=== PATIENT | female | born 1990 | race Two or more races ===

== ENCOUNTER 2019-01-14 18:06 | Emergency (ER) | payer MEDICAID ==
[~2019-01-14] VITALS: Ht 175.3 cm; Wt 48.4 kg
[2019-01-14 18:31] VITALS: BP 129/77
--- NOTE | 2019-01-14 19:55 | NUR ---
NO RESPONSE FROM [facility] AFTER 3 ATTEMPTS TO ROOM. CALL TO NUMBER ON FILE RESULTED IN NUMBER RINGING THEN BEING DISCONNECTED "HUNG UP ON" PRIOR TO ANY CONVERSATION. DR. CASTLE INFORMED.
== END 2019-01-14 20:06 | disposition left against medical advice (07) ==
LOC: ER 18:06
DX: M54.2 Cervicalgia (principal); Z53.21 Procedure and treatment not carried out due to patient leaving prior to being seen by health care provider

== ENCOUNTER 2019-09-26 22:27 | Inpatient (IN) | payer MEDICAID ==
[~2019-09-26] VITALS: Ht 175.3 cm; Wt 63.0 kg
[2019-09-26] MEDS ORDERED: acetaminophen 325mg tablet PO ONE (22:35)
[2019-09-26 23:05] LABS: BASOPHILS % (AUTO) 0.2 % (0-1); EOSINOPHILS # (AUTO) 0.1 X10'3 (0-0.9); EOSINOPHILS % (AUTO) 0.5 % (0-6); HEMATOCRIT 37.9 % (35.0-45.0); HEMOGLOBIN 12.9 g/dl (12.0-16.0); LYMPHOCYTES # (AUTO) 1.4 X10'3 (1.1-4.8); LYMPHOCYTES % (AUTO) 5.7 % (21-51); MEAN CORPUSCULAR HEMOGLOBIN 34.2 PG (27.0-31.0); MEAN CORPUSCULAR VOLUME 100.6 FL (78-98); MEAN PLATELET VOLUME 7.6 FL (7.4-10.4); MONOCYTES # (AUTO) 0.6 X10'3 (0-0.9); MONOCYTES % (AUTO) 2.6 % (2-12); NEUTROPHILS # (AUTO) 22.7 X10'3 (1.8-7.7); PLATELET COUNT 268 X10'3 (140-440); RED BLOOD COUNT 3.76 X10'6 (4.20-5.60); RED CELL DISTRIBUTION WIDTH 12.4 % (11.5-14.5); WHITE BLOOD COUNT 24.9 X10'3 (4.5-11.0)
[2019-09-26 23:18] LABS: ALANINE AMINOTRANSFERASE 19 U/L (12-78); ALBUMIN 3.9 G/DL (3.4-5.0); ALKALINE PHOSPHATASE 87 IU/L (46-116); ANION GAP 11 (8-16); ASPARTATE AMINO TRANSFERASE 20 U/L (10-37); BILIRUBIN,TOTAL 0.3 MG/DL (0.1-1.0); BLOOD UREA NITROGEN 16 MG/DL (7-18); BUN/CREATININE RATIO 20.5 (6.6-38.0); CHLORIDE 101 MMOL/L (99-107); CREATININE 0.78 MG/DL (0.40-0.90); GLUCOSE 138 MG/DL (70-104); LIPASE 67 U/L (73-393); POTASSIUM 3.5 MMOL/L (3.5-5.1); SODIUM 136 MMOL/L (135-145); TOTAL CARBON DIOXIDE 24.2 MMOL/L (24-32); eGFR 88 ML/MIN
[2019-09-26] MEDS ORDERED: ondansetron/PF 4mg/2ml inj IV ONE (23:40)
[2019-09-26] MEDS ORDERED: pantoprazole 40 MG vial IV ONE (23:40)
[2019-09-26] MEDS ORDERED: morphine 4 MG/ML inj SYRINge IV ONE (23:40)
[2019-09-26] MEDS ORDERED: normal saline 1000ML IV soln IVB ONE ×2 (23:40)
[2019-09-26] MEDS ORDERED: LORazepam 2 mg/ml vial IV ONE (23:50)
[2019-09-27 00:20] LABS: URINE HCG NEGATIVE (NEG)
[2019-09-27 00:23] LABS: CLARITY,URINE SLIGHTLY CLOUDY (Clear); COLOR,URINE YELLOW (Yellow); GLUCOSE, URINE NEGATIVE (Neg); KETONES,URINE NEGATIVE (Neg); LEUKOCYTE ESTERASE ,URINE NEGATIVE (Neg); NITRITES, URINE NEGATIVE (Neg); OCCULT BLOOD,URINE NEGATIVE (Neg); PH,URINE 7.5 (4.8-8.0); PROTEIN,URINE NEGATIVE (Neg); UA COLLECTION TYPE CLN CATCH MIDSTREAM
[2019-09-27 00:30] LABS: SQUAMOUS EPITHELIAL CELL,UR MODERATE /LPF (FEW)
[2019-09-27 00:31] LABS: BACTERIA,URINE NONE SEEN /HPF (Neg); MUCUS STRANDS FEW /LPF (Neg); RBC,URINE 0-2 /HPF (0-2)
[2019-09-27] MEDS ORDERED: iohexol 300mg/ml 100ml inj. ONE (00:39)
--- NOTE | 2019-09-27 00:44 | NUR ---
TO CT VIA [facility] ACCOMPANIED BY [employer] TE[employer]NY GREEN
[2019-09-27 00:45] LABS: URINE AMPHETAMINE SCREEN POSITIVE (Neg); URINE BARBITUATE SCREEN NEGATIVE (Neg); URINE BENZODIAZEPINES SCREEN NEGATIVE (Neg); URINE CANNABINOID SCREEN POSITIVE (Neg); URINE COCAINE SCREEN NEGATIVE (Neg); URINE METHADONE SCREEN NEGATIVE (Neg); URINE OPIATE SCREEN NEGATIVE (Neg); URINE PHENCYCLIDINE SCREEN NEGATIVE (Neg)
[2019-09-27] MEDS ORDERED: doxycycline inj 100 MG in normal saline 100ml IV soln 100 ML IV SCH ×2 (00:55→08:00)
[2019-09-27] MEDS ORDERED: cefoxitin sod inj 2,000 MG in normal saline 100ml IV soln 100 ML IV SCH ×2 (00:55→08:00)
[2019-09-27] MEDS ORDERED: DOXYCYCLINE 100MG CAPSULE PO ONE (01:00)
[2019-09-27] MEDS ORDERED: cefoxitin sod inj 2,000 MG in normal saline 100ml IV soln 100 ML IV ONE (01:05)
[2019-09-27 01:09] LABS: TOTAL CELLS COUNTED 100
[2019-09-27 01:10] LABS: PLATELET ESTIMATE NORMAL; SMUDGE CELLS 1+
[2019-09-27 01:11] LABS: STOMATOCYTES FEW
[2019-09-27] MEDS ORDERED: NO HOME MEDS (02:23)
[2019-09-27] MEDS ORDERED: morphine 2 MG/ML inj. syringe IV PRN ×2 (02:45→20:55)
[2019-09-27] MEDS ORDERED: magnesium hydroxide 30ml (MOM) UD suspension PO PRN (02:45)
[2019-09-27] MEDS ORDERED: ondansetron/PF 4mg/2ml inj IV PRN (02:45)
[2019-09-27] MEDS ORDERED: mag hydrox/Alum hydrox/simeth 30ml oral suspension PO PRN (02:45)
[2019-09-27] MEDS: morphine 2 MG/ML inj. syringe IV PRN ×6 (03:13→20:58)
--- NOTE | 2019-09-27 03:30 | NUR ---
oriented pt to room. call light in reach. noted pt clutching belly,bent over and groaning while moving from chair to bed.
[2019-09-27] MEDS: normal saline 1000ml 1,000 ML IV SCH ×3 (03:32→21:23)
[2019-09-27 03:40] VITALS: BP 114/67
[2019-09-27 06:00] VITALS: BP 121/71
--- NOTE | 2019-09-27 06:31 | NUR ---
reported to days. noted pt still sleeping. no sxs distress. VSS.
--- NOTE | 2019-09-27 06:54 | NUR ---
Patient in room ORTHO 4012. I have received report from Lilliam ROGERS and had the opportunity to ask questions and assume patient care.
[2019-09-27] MEDS: ceFOXitin 2 GM ADDvantage bag 100 ML IV SCH ×3 (07:28→19:51)
[2019-09-27] MEDS: heparin, porcine 5000 units/ml vial SQ SCH ×2 (07:29→19:51)
[2019-09-27] MEDS: DOXYCYCLINE 100MG CAPSULE PO SCH ×2 (07:29→19:49)
[2019-09-27 10:00] VITALS: BP 105/66
--- NOTE | 2019-09-27 10:12 | NUR ---
WHILE DARTING PATIENT SHE INFORMED ME THAT SHE IS HOMELESS AND USES DRUGS, ASKED HER IF SHE WOULD LIKE A PANAMA HAT BLOCKER TO TALK TO HER ABOUT HER SITUATION, SHE DENIED THIS SERVICE AT THIS TIME.
--- NOTE | 2019-09-27 10:44 | NUR ---
Student documentation: I have reviewed all interventions, assessments performed and [facility] Student Medication Administration: For this medication-pass time frame, all medication were reviewed, dispensed, administered and documented per hospital policy [facility].
[2019-09-27 18:00] VITALS: BP 111/56
--- NOTE | 2019-09-27 18:14 | NUR ---
Problems reprioritized. Patient report given, questions answered & plan of care reviewed with Yasemin ROGERS.
--- NOTE | 2019-09-27 18:15 | NUR ---
Patient in room ORTHO 4012. I have received report from SUE Márquez and had the opportunity to ask questions and assume patient care.
[2019-09-27] MEDS: acetaminophen 325mg tablet PO PRN (21:50)
[2019-09-27 22:00] VITALS: BP 119/69
[2019-09-28] MEDS: morphine 2 MG/ML inj. syringe IV PRN ×5 (02:14→19:49)
[2019-09-28 06:00] VITALS: BP 144/87
[2019-09-28 06:15] LABS: BASOPHILS % (AUTO) 0.2 % (0-1); EOSINOPHILS % (AUTO) 0.3 % (0-6); HEMATOCRIT 33.6 % (35.0-45.0); HEMOGLOBIN 11.6 g/dl (12.0-16.0); LYMPHOCYTES # (AUTO) 0.8 X10'3 (1.1-4.8); LYMPHOCYTES % (AUTO) 5.4 % (21-51); MEAN CORPUSCULAR HEMOGLOBIN 34.6 PG (27.0-31.0); MEAN CORPUSCULAR HGB CONC 34.4 g/dL (33.0-36.5); MEAN CORPUSCULAR VOLUME 100.6 FL (78-98); MEAN PLATELET VOLUME 8.3 FL (7.4-10.4); MONOCYTES # (AUTO) 0.5 X10'3 (0-0.9); MONOCYTES % (AUTO) 3.3 % (2-12); NEUTROPHILS # (AUTO) 14.2 X10'3 (1.8-7.7); NEUTROPHILS % (AUTO) 90.8 % (42-75); PLATELET COUNT 210 X10'3 (140-440); RED BLOOD COUNT 3.34 X10'6 (4.20-5.60); WHITE BLOOD COUNT 15.7 X10'3 (4.5-11.0)
[2019-09-28 06:30] LABS: ALANINE AMINOTRANSFERASE 15 U/L (12-78); ALBUMIN 2.9 G/DL (3.4-5.0); ALBUMIN/GLOBULIN RATIO 0.7 (1.1-1.5); ALKALINE PHOSPHATASE 73 IU/L (46-116); ANION GAP 8 (8-16); ASPARTATE AMINO TRANSFERASE 16 U/L (10-37); BILIRUBIN,TOTAL 0.4 MG/DL (0.1-1.0); BLOOD UREA NITROGEN 6 MG/DL (7-18); BUN/CREATININE RATIO 7.7 (6.6-38.0); CALCIUM 8.6 MG/DL (8.5-10.1); CHLORIDE 103 MMOL/L (99-107); CREATININE 0.78 MG/DL (0.40-0.90); GLUCOSE 83 MG/DL (70-104); POTASSIUM 3.5 MMOL/L (3.5-5.1); SODIUM 136 MMOL/L (135-145); TOTAL CARBON DIOXIDE 24.7 MMOL/L (24-32); TOTAL PROTEIN 6.8 G/DL (6.4-8.2); eGFR 88 ML/MIN
--- NOTE | 2019-09-28 06:40 | NUR ---
Patient in room ORTHO 4012. I have received report from Yasemin ROGERS and had the opportunity to ask questions and assume patient care.
--- NOTE | 2019-09-28 06:42 | NUR ---
Problems reprioritized. Patient report given, questions answered & plan of care reviewed with SUE Márquez.
[2019-09-28] MEDS: normal saline 1000ml 1,000 ML IV SCH ×2 (07:08→19:50)
[2019-09-28] MEDS: heparin, porcine 5000 units/ml vial SQ SCH ×2 (07:33→19:50)
[2019-09-28] MEDS: DOXYCYCLINE 100MG CAPSULE PO SCH ×2 (07:33→19:49)
[2019-09-28] MEDS: acetaminophen 325mg tablet PO PRN (08:51)
[2019-09-28] MEDS: CefTRIAXone/D5W-Rocephin 1gm 50 ML IV SCH (08:51)
[2019-09-28] MEDS: metroNIDAZOLE 500mg tablet PO SCH ×2 (08:51→19:49)
[2019-09-28] MEDS ORDERED: diatr meglu/diatrizoate 30ml oral sol.-(3 dose) bottle PO ONE ×3 (09:15→15:35)
[2019-09-28 10:00] VITALS: BP 124/70
[2019-09-28] MEDS ORDERED: metroNIDAZOLE 500mg tablet PO SCH (13:00)
[2019-09-28] MEDS ORDERED: diatrozoate meglu/diatrozoate sod (37% iodine) 120ML oral solution PO ONE ×2 (13:30→15:25)
[2019-09-28] MEDS ORDERED: iohexol 300mg/ml 100ml inj. ONE (15:42)
--- NOTE | 2019-09-28 16:32 | NUR ---
Willi [id number] Re: Harmony Mayen. CT of abd/pelvic are finished. Pt is asking when she is able to eat.
[2019-09-28 18:00] VITALS: BP 124/70
--- NOTE | 2019-09-28 18:18 | NUR ---
Problems reprioritized. Patient report given, questions answered & plan of care reviewed with Yasemin ROGERS.
--- NOTE | 2019-09-28 18:20 | NUR ---
Patient in room ORTHO 4012. I have received report from Willi ROGERS and had the opportunity to ask questions and assume patient care.
--- NOTE | 2019-09-28 18:20 | NUR ---
Patient in room ORTHO 4012. I have received report from SUE Márquez and had the opportunity to ask questions and assume patient care.
[2019-09-28] MEDS: lactobacillus rhamnosus 10,000 MMU CELLS/CAPSULE PO SCH (19:49)
[2019-09-28 22:00] VITALS: BP 106/59
[2019-09-29] MEDS: morphine 2 MG/ML inj. syringe IV PRN ×2 (04:26→07:55)
[2019-09-29] MEDS: normal saline 1000ml 1,000 ML IV SCH (04:53)
[2019-09-29 06:00] VITALS: BP 138/78
[2019-09-29 06:25] LABS: BASOPHILS % (AUTO) 0.3 % (0-1); EOSINOPHILS # (AUTO) 0.1 X10'3 (0-0.9); EOSINOPHILS % (AUTO) 1.1 % (0-6); HEMATOCRIT 32.1 % (35.0-45.0); LYMPHOCYTES # (AUTO) 1.2 X10'3 (1.1-4.8); LYMPHOCYTES % (AUTO) 15.2 % (21-51); MEAN CORPUSCULAR HEMOGLOBIN 34.6 PG (27.0-31.0); MEAN CORPUSCULAR HGB CONC 34.4 g/dL (33.0-36.5); MEAN CORPUSCULAR VOLUME 100.6 FL (78-98); MEAN PLATELET VOLUME 8.6 FL (7.4-10.4); MONOCYTES # (AUTO) 0.4 X10'3 (0-0.9); MONOCYTES % (AUTO) 5.9 % (2-12); NEUTROPHILS # (AUTO) 5.9 X10'3 (1.8-7.7); NEUTROPHILS % (AUTO) 77.5 % (42-75); PLATELET COUNT 182 X10'3 (140-440); RED BLOOD COUNT 3.19 X10'6 (4.20-5.60); RED CELL DISTRIBUTION WIDTH 12.1 % (11.5-14.5); WHITE BLOOD COUNT 7.6 X10'3 (4.5-11.0)
--- NOTE | 2019-09-29 06:26 | NUR ---
Problems reprioritized. Patient report given, questions answered & plan of care reviewed with Willi ROGERS.
--- NOTE | 2019-09-29 06:27 | NUR ---
Patient in room ORTHO 4012. I have received report from Yasemin ROGERS and had the opportunity to ask questions and assume patient care.
[2019-09-29 06:45] LABS: ALANINE AMINOTRANSFERASE 14 U/L (12-78); ALBUMIN 2.6 G/DL (3.4-5.0); ALBUMIN/GLOBULIN RATIO 0.7 (1.1-1.5); ALKALINE PHOSPHATASE 66 IU/L (46-116); ANION GAP 9 (8-16); ASPARTATE AMINO TRANSFERASE 19 U/L (10-37); BILIRUBIN,TOTAL 0.2 MG/DL (0.1-1.0); BLOOD UREA NITROGEN 3 MG/DL (7-18); BUN/CREATININE RATIO 3.8 (6.6-38.0); CALCIUM 8.3 MG/DL (8.5-10.1); CHLORIDE 105 MMOL/L (99-107); CREATININE 0.78 MG/DL (0.40-0.90); GLUCOSE 86 MG/DL (70-104); POTASSIUM 3.2 MMOL/L (3.5-5.1); SODIUM 139 MMOL/L (135-145); TOTAL CARBON DIOXIDE 25.1 MMOL/L (24-32); TOTAL PROTEIN 6.5 G/DL (6.4-8.2); eGFR 88 ML/MIN
--- NOTE | 2019-09-29 07:16 | NUR ---
Willi [id number] Re: Harmony Redd. Yarely 3.2 can we start K replacement protocol?
[2019-09-29] MEDS: DOXYCYCLINE 100MG CAPSULE PO SCH (07:54)
[2019-09-29] MEDS: lactobacillus rhamnosus 10,000 MMU CELLS/CAPSULE PO SCH (07:54)
[2019-09-29] MEDS: CefTRIAXone/D5W-Rocephin 1gm 50 ML IV SCH (07:55)
[2019-09-29] MEDS: metroNIDAZOLE 500mg tablet PO SCH (07:55)
[2019-09-29] MEDS: heparin, porcine 5000 units/ml vial SQ SCH (07:56)
[2019-09-29] MEDS ORDERED: azithromycin 250mg tablet PO ONE (09:50)
[2019-09-29 10:00] VITALS: BP 113/70
[2019-09-29] MEDS ORDERED: CefTRIAXone 1000mg IM Kit (w/lidocaine diluent) IM ONE (10:00)
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
--- NOTE | 2019-09-29 10:38 | NUR ---
Willi [id number] Re: Harmony Redd. Friendly reminder to put in DC orders. thank you.
--- NOTE | 2019-09-29 12:00 | NUR ---
Safe DC. all personal items with patient
== END 2019-09-29 12:10 | disposition home or self-care (01) | DRG 720 ==
LOC: ER 22:28 → ED HOLD 09-27 02:49 → ORTHO 4S 09-27 03:25
PROVIDERS: ADMIT Internal Medicine; ATTEND Family Medicine
PROC: BW211ZZ Computerized Tomography (CT Scan) of Abdomen and Pelvis using Low Osmolar Contrast (ICD-10-PCS; principal; 2019-09-27)
PROC: BW211ZZ Computerized Tomography (CT Scan) of Abdomen and Pelvis using Low Osmolar Contrast (ICD-10-PCS; 2019-09-28)
DX: A41.9 Sepsis, unspecified organism (principal); A54.24 Gonococcal female pelvic inflammatory disease; K56.7 Ileus, unspecified; F15.10 Other stimulant abuse, uncomplicated; F17.200 Nicotine dependence, unspecified, uncomplicated; F12.90 Cannabis use, unspecified, uncomplicated; R91.1 Solitary pulmonary nodule; Z79.899 Other long term (current) drug therapy
CPT/HCPCS: 36415; 74177; 80053; 80305; 81001; 81025; 83605; 83690; 85025; 87040; 87081; 87088; 87210; 87491; 96374; 96375; 99285; C9113; G0378; J0694; J0696; J1644; J2060; J2270; J2405; J3490; J7030; Q0112; Q9963; Q9967

== ENCOUNTER 2022-06-03 03:05 | Emergency (ER) | payer MEDICAID ==
[~2022-06-03] VITALS: Ht 175.3 cm; Wt 65.9 kg
[~2022-06-03 03:05] MED LIST: ORPH100T2 PO
[2022-06-03] MEDS ORDERED: normal saline 1000ml 1,000 ML IV ONE ×2 (04:20)
[2022-06-03] MEDS ORDERED: CefTRIAXone 2gm/D5W 50ml BAG 50 ML IV ONE (04:20)
[2022-06-03] MEDS ORDERED: ketorolac trometh. 30mg/ml inj. IV ONE (04:20)
[2022-06-03 04:44] LABS: BASOPHILS % (AUTO) 0.1 % (0-1); EOSINOPHILS % (AUTO) 0.5 % (0-6); HEMATOCRIT 35.4 % (35.0-45.0); HEMOGLOBIN 12.2 g/dl (12.0-16.0); LYMPHOCYTES # (AUTO) 0.2 X10'3 (1.1-4.8); LYMPHOCYTES % (AUTO) 4.4 % (21-51); MEAN CORPUSCULAR HEMOGLOBIN 33.7 PG (27.0-31.0); MEAN CORPUSCULAR HGB CONC 34.5 g/dL (33.0-36.5); MEAN CORPUSCULAR VOLUME 97.7 FL (78-98); MEAN PLATELET VOLUME 8.7 FL (7.4-10.4); MONOCYTES # (AUTO) 0.5 X10'3 (0-0.9); MONOCYTES % (AUTO) 8.6 % (2-12); NEUTROPHILS # (AUTO) 4.7 X10'3 (1.8-7.7); NEUTROPHILS % (AUTO) 86.4 % (42-75); PLATELET COUNT 168 X10'3 (140-440); RED BLOOD COUNT 3.62 X10'6 (4.20-5.60); RED CELL DISTRIBUTION WIDTH 13.1 % (11.5-14.5); WHITE BLOOD COUNT 5.5 X10'3 (4.5-11.0)
[2022-06-03 04:58] LABS: ALANINE AMINOTRANSFERASE 12 U/L (12-78); ALBUMIN/GLOBULIN RATIO 1.1 (1.1-1.5); ALKALINE PHOSPHATASE 62 IU/L (46-116); ANION GAP 7 (8-16); ASPARTATE AMINO TRANSFERASE 18 U/L (10-37); BILIRUBIN,TOTAL 0.1 MG/DL (0.1-1.0); BLOOD UREA NITROGEN 11 MG/DL (7-18); BUN/CREATININE RATIO 12.5 (6.6-38.0); CALCIUM 8.6 MG/DL (8.5-10.1); CHLORIDE 105 MMOL/L (99-107); CREATININE 0.88 MG/DL (0.40-0.90); GLUCOSE 101 MG/DL (70-104); MAGNESIUM 1.7 MG/DL (1.5-2.4); SODIUM 137 MMOL/L (135-145); TOTAL CARBON DIOXIDE 25.5 MMOL/L (24-32); TOTAL PROTEIN 7.7 G/DL (6.4-8.2); eGFR 75 ML/MIN
[2022-06-03] MEDS ORDERED: acetaminophen 1,000mg/100ml IV 100 ML IV ONE (05:14)
[2022-06-03] MEDS ORDERED: LIDOcaine 1% 30ml preserv. free vial IJ STA (05:22)
[2022-06-03 06:46] LABS: URINE HCG NEGATIVE (NEG)
[2022-06-03 07:23] LABS: GLUCOSE,CSF 71 MG/DL (40-75); TOTAL PROTEIN,CSF 43 MG/DL (15-45)
[2022-06-03 07:36] LABS: APPEARANCE,CSF CLEAR; CSF SUPERNATANT COLOR COLORLESS; CSF VOLUME 7.1 ML; TUBE# COUNTED 1
[2022-06-03 07:42] LABS: APPEARANCE,CSF CLEAR; CSF RBC 0 /CU MM (0); CSF WBC CT 1 /CU MM (0-5)
[2022-06-03 07:43] LABS: CSF RBC 0 /CU MM (0); CSF SUPERNATANT COLOR COLORLESS; CSF VOLUME 7.1 ML; CSF WBC CT 0 /CU MM (0-5); TUBE# COUNTED 4
--- NOTE | 2022-06-03 07:43 | NUR ---
SBAR THE SPINAL TAP RESULTS TO DR RIOS AND ADWOA PLATT RN.
[2022-06-03 07:55] LABS: CLARITY,URINE CLOUDY (Clear); COLOR,URINE YELLOW (Yellow); GLUCOSE, URINE NEGATIVE (Neg); KETONES,URINE NEGATIVE (Neg); LEUKOCYTE ESTERASE ,URINE NEGATIVE (Neg); NITRITES, URINE POSITIVE (Neg); OCCULT BLOOD,URINE NEGATIVE (Neg); PROTEIN,URINE NEGATIVE (Neg)
[2022-06-03 08:02] LABS: UA COLLECTION TYPE CLN CATCH MIDSTREAM
[2022-06-03 08:08] LABS: BACTERIA,URINE 1+ /HPF (Neg); RBC,URINE 0-2 /HPF (0-2); SQUAMOUS EPITHELIAL CELL,UR MODERATE /LPF (FEW); WBC,URINE 0-4 /HPF (0-4)
[2022-06-03 08:45] VITALS: BP 95/55
[2022-06-07 11:09] LABS: CSF WEST NILE VIRUS, IGG Negative (Negative)
[2022-06-07 17:27] LABS: CSF WEST NILE VIRUS, IGM Negative (Negative)
== END 2022-06-03 08:48 | disposition home or self-care (01) ==
LOC: ER 03:05
DX: R50.9 Fever, unspecified (principal); Z20.822 Contact with and (suspected) exposure to COVID-19; R51.9 Headache, unspecified; F12.90 Cannabis use, unspecified, uncomplicated; F15.20 Other stimulant dependence, uncomplicated
CPT/HCPCS: 36415; 62270; 70450; 71045; 80053; 81001; 81025; 82945; 83735; 84145; 84157; 85025; 86788; 86789; 87040; 87088; 87635; 89051; 93005; 96365; 96375; 99285; C9803; J0131; J0696; J1885; J7030

== ENCOUNTER 2025-06-25 11:03 | Emergency (ER) | payer MEDICAID ==
[~2025-06-25] VITALS: Ht 175.3 cm; Wt 132.3 kg
[~2025-06-25 11:03] MED LIST changes: -ORPH100T2 PO; +ORPH100T4 PO
[2025-06-25 12:52] LABS: LEUKOCYTE ESTERASE ,URINE NEGATIVE (Neg); NITRITES, URINE POSITIVE (Neg); OCCULT BLOOD,URINE NEGATIVE (Neg); URINE HCG NEGATIVE (NEG)
[2025-06-25 13:21] LABS: UA COLLECTION TYPE CLN CATCH MIDSTREAM
[2025-06-25 13:22] LABS: SQUAMOUS EPITHELIAL CELL,UR MODERATE /LPF (FEW)
[2025-06-25] MEDS: LIDOcaine 1% W/epiNEPHrine 1:100,000 20ml vial SQ ONE (13:59)
[2025-06-25 16:12] VITALS: BP 116/76; PULSE 79; RESP 16; O2SAT 98
[2025-06-25] MEDS ORDERED: SULF1TAB49 PO (16:26)
--- NOTE | 2025-06-25 16:26 | Physician Documentation ---
History of Present Illness ~ Chief Complaint: Arm Pain Stated Complaint: PAIN IN ARMPIT Time Seen by MD: 16:13 Primary Medical Doctor: NONE HPI Patient is a 35-year-old female that presents to the emergency department for a wound to her right axilla. Reports that the lump arose a proximally three days ago in his very painful to the touch and painful down her side. Patient denies any knowledge of being bitten any agrees that area. Tetanus within 5 years: Yes (2019) Medication Reconciliation Allergies: Coded Allergies: No Known Allergies (Unverified , 06/10/23) Scheduled Orphenadrine Citrate (Norflex), 1 TAB PO Q12H PRN Past Medical History Past Medical History: No Pertinent History Past Surgical History: no surgical history Smoking Status: Current every day smoker Alcohol Use: Occasionally Drug Use: marijuana, methamphetamine Lives In: Home Review of Systems ROS As stated above in the HPI, otherwise all systems are reviewed and negative. Physical Exam Vital Signs: Temperature: 98.0, Heart Rate: 79, Respiratory Rate: 16, BP: 116/76, Pulse Oximetry: 98, Weight: 132.300 Oxygen Flow Rate: 0 Physical Exam VITALS: Reviewed and as above. GENERAL: Alert, no apparent distress. HEENT: Normocephalic, atraumatic, PERRL, EOMI, dry mucosa, no erythema RESPIRATORY: Lungs clear, normal breath sounds, no respiratory distress. CHEST: No accessory muscle use, no retractions CV: Regular rate, rhythm, no edema, no murmur, No: JVD GI: Soft, non-tender, bowels sounds present, no rebound, guarding, or rigidity BACK: No CVA tenderness, or swelling MUSCULOSKELETAL No deformities, no edema SKIN: Warm and dry, area of erythema with edema to the right axilla NEURO: Oriented x4, No motor or sensory deficit PSYCH: Normal mood and affect, no agitation Progress Results/Orders Results/Orders Vital Signs 06/25/25 06/25/25 11:06 16:12 Temp 98.0 98.0 Pulse 89 79 Resp 17 16 B/P (MAP) 123/76 116/76 (89) Pulse Ox 100 98 O2 Flow Rate 0 0 Laboratory Tests Test 06/25/25 12:33 Urine Specimen Description Cln catch midstream Urine Color Yellow Urine Clarity Slightly cloudy Urine pH 6.0 Urine Specific [place] >=1.030 Urine Protein Negative Urine Glucose (UA) Negative Urine Ketones Negative Urine Occult Blood Negative Urine Nitrite Positive H Urine Bilirubin Negative Urine Urobilinogen 0.2 Urine Leukocyte Esterase Negative Urine RBC 0-2 Urine WBC 5-10 H Urine Squamous Epithelial Cells Moderate Urine Bacteria 4+ Urine Culture Indicated Indicated Volume Urine Centrifuged 10 ml Urine HCG, Qualitative Negative Urine Comment Microbiology Date/Time Source Procedure Growth Status 06/25/25 13:23 Urine Clean Catch Midstream Urine Culture - Preliminary Culture received. Resulted Medical Decision Making Findings This patient presents with a painful fluid pocket with fluctuance and surrounding induration and erythema, concerning for an abscess of _. The abscess was anesthetized with lidocaine and then I&D was performed with deloculation and purulence was expressed. There is no lymphangitic spread visible. Low concern for osteomyelitis. Patient is not immunocompromised, and there is no bullae, pain out of proportion, or rapid progression concerning for necrotizing fasciitis. Patient to be discharged home with bactrim and follow up with the primary care provider. Return to the emergency department if she has any worsening of symptoms or any additional concerning symptoms present that we discussed today. Departure Disposition: 01 HOME / SELF CARE / HOMELESS Impression: Primary Impression: Abscess Discharge Instructions: Abscess, Care After Additional Instructions: You were seen for evaluation of the abscess your right axilla. Abscess was drained from care was provided. Antibiotics were prescribed please take them until they are gone. Please follow up with your primary care provider. Please return to the emergency department if you have any worsening symptoms or any additional concerning symptoms that we discussed here today present. Referrals: NO PRIMARY CARE PROVIDER (PCP) Prescriptions Sulfamethoxazole/Trimethoprim (Bactrim Ds Tablet) 800 Mg-160 Mg Tablet 1 TAB PO Q12H for 10 Days, #20 TAB Prov: JUSTIN ROMERO 06/25/25 Education Educated: Patient Educated regarding: treatment, need for follow up JUSTIN ROMERO Jun 25, 2025 16:26
[2025-06-25 16:34] VITALS: TEMP 98
== END 2025-06-25 16:43 | disposition home or self-care (01) ==
LOC: ER 11:04
DX: L02.411 Cutaneous abscess of right axilla (principal); F15.90 Other stimulant use, unspecified, uncomplicated; F12.90 Cannabis use, unspecified, uncomplicated; F17.200 Nicotine dependence, unspecified, uncomplicated; Z79.899 Other long term (current) drug therapy
CPT/HCPCS: 10060; 81001; 81025; 87088; 87186; 99283; A6407; 87077; A6449

== ENCOUNTER 2025-08-22 02:22 | Emergency (ER) | payer MEDICAID ==
[~2025-08-22] VITALS: Ht 175.3 cm; Wt 59.1 kg
[~2025-08-22 02:22] MED LIST changes: +TRAM50TA2 PO
[2025-08-22 02:27] VITALS: BP 135/87; PULSE 87; RESP 14; TEMP 97.2; O2SAT 99
--- NOTE | 2025-08-22 03:26 | Physician Documentation ---
History of Present Illness ~ Chief Complaint: Mouth Pain Stated Complaint: FACIAL SWELLING Time Seen by MD: 03:26 Primary Medical Doctor: NONE HPI Patient presents to the emergency room with dental pain. She was seen here by myself a proximally three weeks ago at 4:00 a.m. for similar complaints. She states she completed the antibiotics that has not had any luck getting appo intment with a dentist. No fevers. Medication Reconciliation Allergies: Coded Allergies: No Known Allergies (Unverified , 08/22/25) Scheduled Orphenadrine Citrate (Norflex), 1 TAB PO Q12H PRN Scheduled PRN Tramadol HCl (Tramadol HCl), 1 TAB PO Q12H PRN PRN for pain Past Medical History Past Medical History: No Pertinent History Past Surgical History: no surgical history Alcohol Use: Occasionally Drug Use: marijuana, methamphetamine Lives In: Home Review of Systems ROS All review of systems negative except as per HPI Physical Exam Vital Signs: Temperature: 97.2, Source: Oral, Heart Rate: 87, Respiratory Rate: 14, BP: 135/87, Pulse Oximetry: 99, Weight: 59.090 Physical Exam General: Patient is awake, alert, oriented x4 in no acute distress Head: Normocephalic and atraumatic. Eyes: Conjunctival normal. EOMI. PERRL. ENT: Mucous membranes moist. No appreciable asymmetry/abscess Neck: Supple, trachea is midline. Chest: Clear to auscultation bilaterally without rales, rhonchi, or wheezes. There is no accessory muscle use or retractions. Cardiac: RRR without murmurs, gallops, or rubs. Progress Results/Orders Results/Orders Vital Signs 08/22/25 02:27 Temp 97.2 Pulse 87 Resp 14 B/P (MAP) 135/87 Pulse Ox 99 Medical Decision Making Findings Patient presents to the emergency room for evaluation of mouth pain. That has no abnormality seen in her mouth aside from a few caries. She complains of facial swelling but I do not appreciate any. He had not feel imaging is necessary or labs. Departure Disposition: HOME / SELF CARE / HOMELESS Impression: Primary Impression: Toothache Condition: Stable Discharge Instructions: Dental Pain, [id number] Additional Instructions: Continue to follow up with a dentist Referrals: NO PRIMARY CARE PROVIDER (PCP) Prescriptions Tramadol HCl (Tramadol HCl) 50 Mg Tablet 1 TAB PO Q6H, #10 TAB Prov: MOY ARENAS MD 08/22/25 Amoxicillin Trihydrate* (Amoxicillin*) 500 Mg Capsule 1 CAP PO Q12H for 10 Days, #20 CAP Prov: MOY ARENAS MD 08/22/25 Education Educated: Patient Educated regarding: diagnosis, treatment, need for follow up Signature Scribe Signature: That has scribe Attestation: The note accurately reflects work and decisions made by me.Moy Arenas MD 08/22/25 03:33 MOY ARENAS MD Aug 22, 2025 03:26
[2025-08-22] MEDS ORDERED: TRAM50TA2 PO (03:33)
[2025-08-22] MEDS ORDERED: AMOX500C2 PO (03:33)
[2025-08-22] MEDS: ondansetron 4mg rapidly disintigrating tab PO ONE (03:47)
== END 2025-08-22 04:05 | disposition home or self-care (01) ==
LOC: ER 02:22
DX: K08.89 Other specified disorders of teeth and supporting structures (principal)
CPT/HCPCS: 99283